=== PATIENT | female | born 1995 | race American Indian/Alaskan Native ===

== ENCOUNTER 2016-11-26 11:04 | Emergency (ER) | payer SELFPAY ==
[2016-11-26] MEDS ORDERED: TETRACAINE 0.5% OU ONE (13:27)
[2016-11-26] MEDS ORDERED: FUL-GLO OP ONE (13:27)
--- NOTE | 2016-11-26 13:42 | Emergency Department Report ---
HPI - General Chief Complaint: Eye Problems Time Seen by Provider: 11/26/16 13:25 - HPI HPI: 20-year-old female presents today with right eye redness since one day. Positive for yellow crusting in the morning, tearing. Patient states that she has a foreign body sensation yesterday, now resolved. Denies injury or trauma. Denies pain or photosensitivity. Positive for decrease in vision in the right eye. Denies contact wear. Denies sick contacts. Denies fever, chills, nausea, vomiting, cough or cold symptoms, chest pain, shortness of breath, abdominal pain. ED Past Medical Hx - Past Medical History Previous Medical History?: No Additional medical history: HSV - Surgical History Past Surgical History?: No - Social History Smoking Status: Never Smoker Substance Use Type: None - Medications Home Medications: Home Medications Medication Instructions Recorded Confirmed Last Taken Type metroNIDAZOLE [Flagyl] 500 mg PO BID #20 tablet 07/23/14 Unknown Rx Acetaminophen/Codeine [Tylenol #3] 1 tab PO Q6H PRN #20 tab 03/08/16 Unknown Rx Cephalexin [Keflex] 500 mg PO Q6HR #40 capsule 03/08/16 Unknown Rx Ibuprofen [Motrin 600 MG tab] 600 mg PO Q8H PRN #30 tablet 03/08/16 Unknown Rx Levofloxacin [levofloxacin OPTH] 1 - 2 drop OP Q2HWA #1 bottle 11/26/16 Unknown Rx ED Review of Systems ROS: Stated complaint: RT EYE INFECTION Other details as noted in HPI Constitutional: denies: chills, fever, malaise Eyes: eye discharge, vision change. denies: eye pain ENT: denies: ear pain, throat pain, congestion Respiratory: denies: cough, shortness of breath, wheezing Cardiovascular: denies: chest pain, palpitations Endocrine: no symptoms reported Gastrointestinal: denies: abdominal pain, nausea, vomiting Neurological: denies: headache, weakness Physical Exam - Physical Exam Vital Signs: Vital Signs 11/26/16 11:10 Temperature 98.0 F Pulse Rate 77 Respiratory 16 Rate Blood Pressure 129/85 O2 Sat by Pulse 100 Oximetry Physical Exam: GENERAL: The patient is well-developed and well-nourished. Patient is in NAD. HEAD: Normocephalic. Atraumatic. EYES: Extraocular motions are intact, PERRL. Positive for right eye conjunctival injection with yellow crusting. Positive for minimal periorbital edema. EARS: External auditory canals and tympanic membranes clear; hearing grossly intact. NOSE: Normal nasal mucosa with no nasal discharge. THROAT: No erythema, swelling or exudates. NECK: Supple, nontender, without lymphadenopathy. CHEST/LUNGS: Clear to auscultation throughout. HEART/CARDIOVASCULAR: Regular rate and rhythm. ABDOMEN: Abdomen is soft, nontender. No guarding or rebound tenderness. ED Course Vital Signs 11/26/16 11:10 Temperature 98.0 F Pulse Rate 77 Respiratory 16 Rate Blood Pressure 129/85 O2 Sat by Pulse 100 Oximetry - Procedure Description Procedures done: Local anesthesia acquired with 2gtts of tetracaine ophthalmic solution. Fluorescence stain was then applied to the right eye for further examination. The eye was visualized using a wood lamp and no corneal abrasions were visualized, no foreign body seen. Care instructions and follow up instructions were provided to the patient. ED Medical Decision Making - Lab Data Vital Signs 11/26/16 11:10 Temperature 98.0 F Pulse Rate 77 Respiratory 16 Rate Blood Pressure 129/85 O2 Sat by Pulse 100 Oximetry - Medical Decision Making 20-year-old female presents today with right eye conjunctivitis 1 day. Her wood lamp exam was negative for corneal abrasions. Patient is in no acute distress at this time. She will be discharged home and is encouraged to follow up with a primary care provider. She will be sent home on ofloxacin optic drops and is encouraged to return to the emergency room for any worsening symptoms. Critical care attestation.: If time is entered above; I have spent that time in minutes in the direct care of this critically ill patient, excluding procedure time. ED Disposition Clinical Impression: Conjunctivitis Qualifiers: Conjunctivitis type: acute Acute conjunctivitis type: unspecified Laterality: right Qualified Code(s): H10.31 - Unspecified acute conjunctivitis, right eye Disposition: DISCHARGED TO HOME OR SELFCARE Is pt being admited?: No Does the pt Need Aspirin: No Condition: Stable Instructions: Conjunctivitis (ED) Additional Instructions: Follow-up with primary care provider. Return to the emergency department if symptoms worsen. Prescriptions: Levofloxacin [levofloxacin OPTH] 1 - 2 drop OP Q2HWA #1 bottle Referrals: PRIMARY CARE, [Primary Care Provider] - 3-5 Days [facility] [Outside] - 3-5 Days MAY CAMILO MD [Staff Physician] - 3-5 Days Forms: Work/School Release Form(ED) Time of Disposition: 14:06
[2016-11-26 14:29] VITALS: BP 130/80
== END 2016-11-26 14:27 | disposition home or self-care (01) ==
LOC: ED 11:04
DX: H10.31 Unspecified acute conjunctivitis, right eye (principal)
CPT/HCPCS: 99283